=== PATIENT | male | born 2000 | race Caucasian/White ===

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

== ENCOUNTER 2018-06-23 17:57 | Emergency (ER) | payer OTHER ==
[~2018-06-23] VITALS: Ht 190.5 cm; Wt 77.3 kg
[2018-06-23 18:15] VITALS: Ht 190.5 cm; Wt 77.3 kg
[2018-06-23] MEDS ORDERED: MEDROL DOSE PACK4 MG PO (19:46)
[2018-06-23] MEDS ORDERED: TESSALON PERLE100 MG PO (19:46)
[2018-06-23] MEDS ORDERED: ZPAK PO (19:46)
[2018-06-23 19:54] VITALS: BP 122/70
== END 2018-06-23 19:55 | disposition home or self-care (01) ==
LOC: D.ER 17:57
DX: J01.90 Acute sinusitis, unspecified (principal); R05 Cough; J02.9 Acute pharyngitis, unspecified

== ENCOUNTER 2018-07-01 15:32 | Emergency (ER) | payer OTHER ==
[~2018-07-01] VITALS: Ht 190.5 cm; Wt 77.3 kg
[~2018-07-01 15:32] MED LIST: MEDROL DOSE PACK4 MG PO; TESSALON PERLE100 MG PO; ZPAK PO
[2018-07-01 15:40] VITALS: Ht 190.5 cm; Wt 77.3 kg
[2018-07-01 16:49] LABS: BASOPHILS 0.3 % (0-2); EOSINOPHILS 2.3 % (0-7); HEMATOCRIT 42.5 % (42.0-54.0); HEMOGLOBIN 15.3 g/dL (13.5-17.5); IMMATURE GRANULOCYTES 0.1 % (0-5); LYMPHOCYTES 32.2 % (15-50); MCH 32.1 pg (26.0-34.0); MCV 89.3 fL (80.0-100.0); MEAN PLATELET VOLUME 9.7 fL (7.4-10.4); MONOCYTES 10.3 % (2-11); NEUTROPHILS 54.8 % (40-80); PLATELET COUNT 281 10x3/uL (130-400); RBC 4.76 10x6/uL (4.20-6.10); RDW 12.3 % (11.5-14.5); WBC 7.9 10x3/uL (4.8-10.8)
[2018-07-01 17:15] LABS: ALBUMIN 4.5 g/dL (3.4-5.0); ALKALINE PHOSPHATASE 65 U/L (46-116); ALT (SGPT) 20 U/L (10-68); BILIRUBIN - TOTAL 1.46 mg/dL (0.2-1.3); CALC OSMOLALITY 280 mosm/kg (275-300); CALCIUM 9.5 mg/dL (8.5-10.1); CARBON DIOXIDE 27.6 mmol/L (21.0-32.0); CHLORIDE - SERUM 99 mmol/L (98-107); CREATININE - SERUM 1.2 mg/dL (0.6-1.3); GLUCOSE 107 mg/dL (74-106); POTASSIUM - SERUM 3.5 mmol/L (3.5-5.1); PROTEIN - SERUM 8.5 g/dL (6.4-8.2); SODIUM 139 mmol/L (136-145); UREA NITROGEN 21 mg/dL (7-18); eGFR NON AFRICAN AMERICAN 83 mL/min (90-120)
[2018-07-01 17:16] LABS: UDS - AMPHET POSITIVE QUAL (NEGATIVE); UDS - BARB NEGATIVE QUAL (NEGATIVE); UDS - BENZO POSITIVE QUAL (NEGATIVE); UDS - COCAINE NEGATIVE QUAL (NEGATIVE); UDS - OPIATE NEGATIVE QUAL (NEGATIVE); UDS - PCP NEGATIVE QUAL (NEGATIVE); UDS - THC POSITIVE QUAL (NEGATIVE)
[2018-07-01 17:56] VITALS: BP 124/73
== END 2018-07-01 17:57 | disposition home or self-care (01) ==
LOC: D.ER 15:32
PROVIDERS: Emergency Medicine
DX: F15.10 Other stimulant abuse, uncomplicated (principal); F17.200 Nicotine dependence, unspecified, uncomplicated

== ENCOUNTER 2018-12-01 02:23 | Emergency (ER) | payer OTHER ==
--- NOTE | 2018-12-01 03:28 | NUR ---
PATIENT HAS A HISTORY OF SCHIZOPRHENIA AND HALLUCINATIONS, HOWEVER PATIENT DENIES S/I OR H/I. PATIENT HAS BEEN GIVEN RESOURCES TO ASSIST HIM TO GET THE HELP THAT HE NEEDS. PATIENT IS ASKING ABOUT A CLINIC BEING OPEN TO GET BACK ON HIS MEDS ON SUNDAY, THIS INFORMATION WAS GIVEN TO HIM. PT. IS ABLE TO GIVE HIS LIST OF MEDS VERBALLY AND KNOWS THE MILLIGRAMS WELL. HE IS CALM AND HAVING A CONVERSATION WITH THIS NURSE.
[2018-12-01 03:57] VITALS: BP 125/78
== END 2018-12-01 03:58 | disposition home or self-care (01) ==
LOC: D.ER 02:23
DX: Z00.00 Encounter for general adult medical examination without abnormal findings (principal)

== ENCOUNTER 2019-10-01 21:21 | Emergency (ER) | payer OTHER ==
[~2019-10-01] VITALS: Ht 190.5 cm; Wt 88.6 kg
[2019-10-01 21:38] VITALS: Ht 190.5 cm; Wt 88.6 kg
[2019-10-01] MEDS ORDERED: NAPROSYN500 MG PO (22:32)
[2019-10-01 22:45] VITALS: BP 129/76
== END 2019-10-01 22:45 | disposition home or self-care (01) ==
LOC: D.ER 21:21
DX: S29.011A Strain of muscle and tendon of front wall of thorax, initial encounter (principal); F41.9 Anxiety disorder, unspecified; I10 Essential (primary) hypertension; Z72.0 Tobacco use; R07.9 Chest pain, unspecified

== ENCOUNTER 2019-10-08 05:24 | Emergency (ER) | payer SELFPAY ==
[~2019-10-08] VITALS: Ht 190.5 cm; Wt 90.9 kg
[~2019-10-08 05:24] MED LIST changes: +NAPROSYN500 MG PO
[2019-10-08 05:28] VITALS: Ht 190.5 cm; Wt 90.9 kg
[2019-10-08] MEDS ORDERED: HYDROCODON-ACE1 EAC2 PO (06:11)
[2019-10-08] MEDS ORDERED: KEFLEX500 MG PO (06:11)
[2019-10-08 06:57] VITALS: BP 114/77
== END 2019-10-08 06:57 | disposition home or self-care (01) ==
LOC: D.ER 05:24
DX: S51.812A Laceration without foreign body of left forearm, initial encounter (principal); X99.1XXA Assault by knife, initial encounter; Y93.9 Activity, unspecified; Y92.9 Unspecified place or not applicable